=== PATIENT | male | born 1960 | race Two or more races ===

== ENCOUNTER 2019-10-23 20:26 | Emergency (ER) | payer SELFPAY ==
[~2019-10-23] VITALS: Ht 160 cm; Wt 64.0 kg
[2019-10-23] MEDS ORDERED: GABAPENTIN 300MG CAPSULE PO ONE (23:15)
[2019-10-23] MEDS ORDERED: KETOROLAC 60MG/2ML VIAL IM ONE (23:15)
[2019-10-23 23:35] VITALS: BP 142/87
== END 2019-10-23 23:37 | disposition home or self-care (01) ==
LOC: ER 20:26
DX: B02.29 Other postherpetic nervous system involvement (principal); E11.9 Type 2 diabetes mellitus without complications; E78.00 Pure hypercholesterolemia, unspecified; E03.9 Hypothyroidism, unspecified; Z98.890 Other specified postprocedural states
CPT/HCPCS: 99281

== ENCOUNTER 2023-09-15 08:30 | Emergency (ER) | payer MEDICAID ==
[~2023-09-15] VITALS: Ht 162.6 cm; Wt 50.0 kg
[2023-09-15 08:46] VITALS: BP 136/89; PULSE 111; O2SAT 99
[2023-09-15] MEDS ORDERED: AMOX1TAB16 MT (10:51)
[2023-09-15] MEDS ORDERED: IBUP-2030 MT (10:53)
[2023-09-15] MEDS: AMOXICILLIN/POTASSIUM CLAVULANATE 875/125MG TAB PO ONE (11:15)
[2023-09-15] MEDS: IBUPROFEN 800MG TABLET PO ONE (11:15)
[2023-09-15 11:16] VITALS: RESP 17; TEMP 98.2
== END 2023-09-15 11:26 | disposition home or self-care (01) ==
LOC: ER 08:30
DX: K04.7 Periapical abscess without sinus (principal); E78.00 Pure hypercholesterolemia, unspecified; E11.9 Type 2 diabetes mellitus without complications; Z86.39 Personal history of other endocrine, nutritional and metabolic disease
CPT/HCPCS: 99283

== ENCOUNTER 2023-12-09 15:25 | Emergency (ER) | payer MEDICAID ==
[~2023-12-09] VITALS: Ht 162.6 cm; Wt 58.0 kg
[~2023-12-09 15:25] MED LIST: AMOX1TAB16 MT; IBUP-2030 MT
[2023-12-09 15:56] VITALS: TEMP 98.2; O2SAT 99
[2023-12-09] MEDS ORDERED: DIPH25CA83 PO (20:29)
[2023-12-09] MEDS: DIPHENHYDRAMINE 25MG CAPSULE PO ONE (20:39)
[2023-12-09 20:47] VITALS: BP 144/77; PULSE 73; RESP 18; O2SAT 99
[2023-12-10] MEDS ORDERED: METF-416 MT (13:16)
== END 2023-12-09 20:49 | disposition home or self-care (01) ==
LOC: ER 15:25
DX: T78.40XA Allergy, unspecified, initial encounter (principal); E11.9 Type 2 diabetes mellitus without complications; E78.00 Pure hypercholesterolemia, unspecified; Z86.39 Personal history of other endocrine, nutritional and metabolic disease; X58.XXXA Exposure to other specified factors, initial encounter
CPT/HCPCS: 99282; Q0163

== ENCOUNTER 2023-12-10 10:50 | Emergency (ER) | payer MEDICAID ==
[~2023-12-10] VITALS: Ht 157.5 cm; Wt 61.2 kg
[~2023-12-10 10:50] MED LIST changes: +DIPH25CA83 PO
[2023-12-10 11:06] VITALS: O2SAT 99
[2023-12-10 12:06] LABS: BASOPHILS % 0.4 % (0.0-2.0); HEMATOCRIT. 37.4 % (42.0-52.0); HEMOGLOBIN. 12.8 g/dL (14.0-18.0); LYMPHOCYTES % 42.8 % (20.0-50.0); MEAN CORPUSCULAR HEMOGLOBIN 29.1 pg (28.0-32.0); MEAN CORPUSCULAR HGB CONC 34.3 g/dL (31.0-37.0); MEAN CORPUSCULAR VOLUME 84.9 fL (80.0-94.0); MEAN PLATELET VOLUME 7.2 fl (7.4-10.4); MONOCYTES % 7.7 % (2.0-8.0); NEUTROPHILS % 48.1 % (40.0-76.0); PLATELET 269 x1000/uL (130-400); RED CELL DISTRIBUTION WIDTH 13.9 % (11.6-14.6); WHITE BLOOD COUNT 4.7 x1000/uL (4.5-11.0)
[2023-12-10 12:15] LABS: CHLORIDE 103 mEq/L (98-107); POTASSIUM 4.4 mEq/L (3.5-5.1); SODIUM 134 mEq/L (136-145)
[2023-12-10 12:16] LABS: CARBON DIOXIDE 27 mEq/L (21-32)
[2023-12-10 12:17] LABS: CALCIUM 9.2 mg/dL (8.7-10.4)
[2023-12-10 12:21] LABS: CREATININE 1.1 mg/dL (0.6-1.3)
[2023-12-10 12:22] LABS: GLUCOSE 381 mg/dL (70-105); UREA NITROGEN BLOOD 20 mg/dL (9-23)
[2023-12-10] MEDS ORDERED: METF-416 MT (13:16)
[2023-12-10 14:00] VITALS: BP 134/74; PULSE 100; RESP 18; TEMP 36.78072; O2SAT 99
== END 2023-12-10 14:45 | disposition home or self-care (01) ==
LOC: ER 10:50
DX: G47.00 Insomnia, unspecified (principal); E11.65 Type 2 diabetes mellitus with hyperglycemia; E78.00 Pure hypercholesterolemia, unspecified
CPT/HCPCS: 36415; 80048; 85025; 99283

== ENCOUNTER 2023-12-24 18:17 | Emergency (ER) | payer MEDICAID ==
[~2023-12-24] VITALS: Ht 165.1 cm; Wt 64.0 kg
[~2023-12-24 18:17] MED LIST changes: +METF-416 MT
[2023-12-24 18:37] VITALS: O2SAT 100
[2023-12-24 19:19] LABS: BASOPHILS % 0.4 % (0.0-2.0); EOSINOPHILS % 0.9 % (0.0-5.0); HEMATOCRIT. 36.5 % (42.0-52.0); HEMOGLOBIN. 12.6 g/dL (14.0-18.0); LYMPHOCYTES % 43.7 % (20.0-50.0); MEAN CORPUSCULAR HEMOGLOBIN 29.3 pg (28.0-32.0); MEAN CORPUSCULAR HGB CONC 34.5 g/dL (31.0-37.0); MEAN PLATELET VOLUME 7.2 fl (7.4-10.4); MONOCYTES % 6.7 % (2.0-8.0); NEUTROPHILS % 48.3 % (40.0-76.0); PLATELET 277 x1000/uL (130-400); RED BLOOD CELL COUNT 4.29 mill/uL (4.7-6.1); RED CELL DISTRIBUTION WIDTH 13.9 % (11.6-14.6); WHITE BLOOD COUNT 6.8 x1000/uL (4.5-11.0)
[2023-12-24 19:24] LABS: CHLORIDE 103 mEq/L (98-107); POTASSIUM 4.1 mEq/L (3.5-5.1); SODIUM 135 mEq/L (136-145)
[2023-12-24 19:25] LABS: CARBON DIOXIDE 27 mEq/L (21-32)
[2023-12-24 19:26] LABS: CALCIUM 9.5 mg/dL (8.7-10.4)
[2023-12-24 19:31] LABS: GLUCOSE 275 mg/dL (70-105); UREA NITROGEN BLOOD 10 mg/dL (9-23)
[2023-12-24] MEDS: ACETAMINOPHEN 325MG TABLET PO ONE (20:29)
[2023-12-24] MEDS ORDERED: LIDO700A15 TP (20:35)
[2023-12-24 20:42] VITALS: BP 141/82; PULSE 91; RESP 18; TEMP 36.66960; O2SAT 99
== END 2023-12-24 20:47 | disposition home or self-care (01) ==
LOC: ER 18:17
DX: M79.605 Pain in left leg (principal); E11.9 Type 2 diabetes mellitus without complications; E78.00 Pure hypercholesterolemia, unspecified; Z79.899 Other long term (current) drug therapy
CPT/HCPCS: 36415; 80048; 85025; 93971; 99284

== ENCOUNTER 2023-12-31 11:23 | Emergency (ER) | payer MEDICAID ==
[~2023-12-31] VITALS: Ht 162.6 cm; Wt 70.3 kg
[~2023-12-31 11:23] MED LIST changes: +LIDO700A15 TP
[2023-12-31 11:32] VITALS: BP 131/77; PULSE 100; RESP 16; O2SAT 99
[2023-12-31 15:24] VITALS: TEMP 98.3
[2023-12-31] MEDS: ACETAMINOPHEN 325MG TABLET PO ONE (15:24)
[2023-12-31 15:34] LABS: BASOPHILS % 0.4 % (0.0-2.0); EOSINOPHILS % 0.8 % (0.0-5.0); HEMATOCRIT. 40.6 % (42.0-52.0); HEMOGLOBIN. 13.9 g/dL (14.0-18.0); LYMPHOCYTES % 45.9 % (20.0-50.0); MEAN CORPUSCULAR HEMOGLOBIN 29.2 pg (28.0-32.0); MEAN CORPUSCULAR HGB CONC 34.3 g/dL (31.0-37.0); MEAN CORPUSCULAR VOLUME 85.1 fL (80.0-94.0); MEAN PLATELET VOLUME 7.3 fl (7.4-10.4); MONOCYTES % 6.1 % (2.0-8.0); NEUTROPHILS % 46.8 % (40.0-76.0); PLATELET 291 x1000/uL (130-400); RED BLOOD CELL COUNT 4.77 mill/uL (4.7-6.1); RED CELL DISTRIBUTION WIDTH 13.7 % (11.6-14.6); WHITE BLOOD COUNT 6.2 x1000/uL (4.5-11.0)
[2023-12-31 15:35] LABS: CHLORIDE 100 mEq/L (98-107); POTASSIUM 4.2 mEq/L (3.5-5.1); SODIUM 137 mEq/L (136-145)
[2023-12-31 15:37] LABS: CALCIUM 9.9 mg/dL (8.7-10.4); CARBON DIOXIDE 29 mEq/L (21-32)
[2023-12-31 15:42] LABS: GLUCOSE 200 mg/dL (70-105); UREA NITROGEN BLOOD 11 mg/dL (9-23)
[2023-12-31 15:44] LABS: ALANINE AMINOTRANSFERASE 11 IU/L (10-49); ALBUMIN 4.9 g/dL (3.2-4.8); ASPARTATE AMINOTRANSFERASE 13 IU/L (<34); BILIRUBIN DIRECT 0.2 mg/dL (<=3.0); BILIRUBIN TOTAL 0.7 mg/dL (0.1-1.0); PROTEIN TOTAL 7.6 g/dL (6.0-8.3)
[2023-12-31 16:23] LABS: CLARITY URINE CLEAR (CLEAR); COLOR URINE YELLOW (YELLOW); GLUCOSE URINE 2+ (NEGATIVE); KETONES URINE 1+ (NEGATIVE); LEUKOCYTE ESTERASE URINE NEGATIVE (NEGATIVE); NITRITE URINE NEGATIVE (NEGATIVE); OCCULT BLOOD URINE NEGATIVE (NEGATIVE); PROTEIN URINE TRACE (NEGATIVE); SPECIFIC GRAVITY URINE 1.018 (1.005-1.030); UROBILINOGEN URINE 0.2 E.U./dL (0.2-1.0)
[2023-12-31 16:49] LABS: BACTERIA URINE NONE SEEN; RBC URINE NONE SEEN /hpf (0-2); SQUAMOUS EPITHELIAL CELL URINE RARE /lpf (RARE/1+); WBC URINE 0-2 /hpf (0-2)
== END 2023-12-31 17:46 | disposition home or self-care (01) ==
LOC: ER 11:25
DX: R53.1 Weakness (principal); E11.9 Type 2 diabetes mellitus without complications; Z79.899 Other long term (current) drug therapy; Z98.890 Other specified postprocedural states; Z20.822 Contact with and (suspected) exposure to COVID-19
CPT/HCPCS: 36415; 71045; 80048; 80076; 81003; 85025; 87426; 99284